=== PATIENT | male | born 1970 | race Two or more races ===

== ENCOUNTER 2017-08-19 12:34 | Emergency (ER) | payer OTHER ==
[2017-08-19 12:41] VITALS: BP 126/65; PULSE 98; TEMP 99.4; BMI 25.2
[2017-08-19] MEDS ORDERED: VANCOMYCIN 1 GM PREMIX - 1 GM/200 ML BAG IVPB ONE (13:38)
--- NOTE | 2017-08-19 13:55 | PDOC ---
History of Present Illness - General Chief Complaint: Redness To Affected Area Stated Complaint: FEVER, BITE - History of Present Illness Initial Comments: This is a 47 room male without any comorbidities who presents with redness and swelling to the left ankle 3 days. He has associated fever at home up to 101.2 he's taken Motrin and Tylenol for his pain and fever which has given him some relief. 08/19/17 13:50 Past History - Past Medical History Allergies/Adverse Reactions: Allergies Allergy/AdvReac Type Severity Reaction Status Date / Time No Known Allergies Allergy Verified 08/19/17 12:41 Home Medications: Ambulatory Orders Cephalexin [Keflex] 500 mg PO QID #40 capsule 08/19/17 Sulfamethoxazole/Trimethoprim [Bactrim Ds -] 1 tab PO BID #14 tablet 08/19/17 - Suicide/Smoking/Psychosocial Hx Smoking History: Never smoked Have you smoked in the past 12 months: No Information on smoking cessation initiated: No Hx Alcohol Use: No Drug/Substance Use Hx: No Review of Systems - Review of Systems Constitutional: Yes: See HPI, Fever, Malaise Musculoskeletal: Yes: See HPI, Joint Pain Integumentary: Yes: See HPI, Erythema All Other Systems: Reviewed and Negative *Physical Exam - Vital Signs Last Vital Signs Temp Pulse Resp BP Pulse Ox 99.4 F 98 H 16 126/65 98 08/19/17 12:39 08/19/17 12:39 08/19/17 12:39 08/19/17 12:39 08/19/17 12:39 - Physical Exam Comments: Left ankle is ear thymic and hot with induration about the medial aspect. The ear edema extends from the fifth and fourth toe proximally and medially around the ankle and stops at the distal torres. There is no pain with passive motion of the ankle joint or toes. There is no appreciable intra-articular effusion. There is induration of the skin medially. There is associated sensitivity. There are no gross sensorimotor deficits There is no streaking or inguinal adenopathy. 08/19/17 13:50 08/19/17 15:24 ED Treatment Course - LABORATORY CBC & Chemistry Diagram: 08/19/17 14:00 08/19/17 14:00 Medical Decision Making - Medical Decision Making I believe this is an increasing cellulitis. This is not a septic joint picture. And I don't believe this is a necrotizing fasciitis. However I will get an ankle x-ray. 08/19/17 13:52 08/19/17 13:53 I'll get some baseline blood work and give him IV vancomycin in the emergency room and try him on outpatient Bactrim and Keflex *DC/Admit/Observation/Transfer Diagnosis at time of Disposition: Cellulitis of ankle - Discharge Dispostion Disposition: HOME Condition at time of disposition: Improved Decision to Admit order: No - Prescriptions Prescriptions: Cephalexin [Keflex] 500 mg PO QID #40 capsule Sulfamethoxazole/Trimethoprim [Bactrim Ds -] 1 tab PO BID #14 tablet - Referrals Referrals: Damion [facility] [Non Staff, Medical] - - Patient Instructions Printed Discharge Instructions: DI for Cellulitis -- Adult, Cellulitis Additional Instructions: Return to the emergency room should her symptoms worsen or go unresolved. Return to the emergency room should the redness extends between the outlined borders I have marked today take all the antibiotics as prescribed. Please follow-up with her primary care physician if he did not have one I've recommended 1 few to follow-up. - Post Discharge Activity
[2017-08-19] MEDS ORDERED: VANCOMYCIN 1 GRAM (PRE-DOCKED) 1,000 MG/250 ML BAG IVPB ONE (14:01)
[2017-08-19 14:11] LABS: BASO % 0.1 % (0-2.0); EOS % 0.7 % (0-4.5); HEMATOCRIT 42.7 % (35.4-49); HEMOGLOBIN 14.4 GM/dL (11.7-16.9); LYMPH % 10.4 % (8-40); MCH 29.2 pg (25.7-33.7); MCHC 33.6 g/dl (32.0-35.9); MEAN CELL VOLUME 86.7 fl (80-96); MEAN PLT VOLUME 8.6 fl (7.5-11.1); MONO % 7.1 % (3.8-10.2); NEUT % 81.7 % (42.8-82.8); PLATELET COUNT 220 K/MM3 (134-434); RBC 4.92 M/mm3 (4.00-5.60); RDW 12.8 % (11.9-15.9); WHITE BLOOD COUNT 10.9 K/mm3 (4.0-10.0)
[2017-08-19 14:50] LABS: ALBUMIN 3.9 g/dl (3.4-5.0); ANION GAP 8 (8-16); BILIRUBIN,TOTAL 0.4 mg/dL (0.2-1.0); BLOOD UREA NITROGEN 14 mg/dL (7-18); CALCIUM 8.8 mg/dL (8.5-10.1); CHLORIDE 101 mmol/L (98-107); CO2 26 mmol/L (21-32); CREATININE 0.9 mg/dL (0.7-1.3); GLUCOSE,RANDOM 109 mg/dL (74-106); POTASSIUM 4.3 mmol/L (3.5-5.1); SGOT/AST 16 U/L (15-37); SGPT/ALT 25 U/L (12-78); SODIUM 135 mmol/L (136-145); TOT PROT 7.4 g/dl (6.4-8.2)
[2017-08-19 14:51] LABS: ALK PHOS 79 U/L (45-117)
== END 2017-08-19 15:43 | disposition home or self-care (01) ==
LOC: JERFT 12:34
DX: L03.116 Cellulitis of left lower limb (principal)
CPT/HCPCS: 36415; 73610-TC-LT-FY; 73630-TC-LT; 80053; 85025; 96365; 96366; 99281-25

== ENCOUNTER 2018-03-18 07:13 | Emergency (ER) | payer SELFPAY ==
[2018-03-18 07:32] VITALS: BP 132/89; PULSE 106; TEMP 98.4; BMI 25.0
--- NOTE | 2018-03-18 07:35 | PDOC ---
History of Present Illness - General Chief Complaint: Pain Stated Complaint: PAIN Time Seen by Provider: 03/18/18 07:35 - History of Present Illness Initial Comments: 47 year old male with PMH of nephrolithiasis (most recently 10/15) presenting with right lower thoracic pain for the past three weeks in the setting of prolonged cough and increased physical activity. States that he has had a lot of construction in his house and he has been assisting with lifting heavy objects. Doesn't recall any specific event where he hurt his back chest but he woke up one morning approximately three weeks prior and had this posterior thoracic pain on the right side that has been worse with moving, deep inhalation , and cough. His pain improves with Tylenol. 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 Denies any recent travel. Denies any fevers,chills, nausea, vomiting, diarrhea, hempoptysis. 03/18/18 07:36 Past History - Past Medical History Allergies/Adverse Reactions: Allergies Allergy/AdvReac Type Severity Reaction Status Date / Time No Known Allergies Allergy Verified 03/18/18 07:32 Home Medications: Ambulatory Orders Azithromycin [Zithromax 250mg Tablets -] 250 mg PO UTDICT #6 tab 03/18/18 Ibuprofen [Motrin -] 600 mg PO QID PRN #20 tablet 03/18/18 COPD: No - Suicide/Smoking/Psychosocial Hx Smoking History: Never smoked Have you smoked in the past 12 months: No Information on smoking cessation initiated: No Hx Alcohol Use: No Drug/Substance Use Hx: No Review of Systems - Review of Systems Constitutional: No: Chills, Diaphoresis, Fever, Loss of Appetite HEENTM: No: Eye Pain, Blurred Vision, Tearing Respiratory: Yes: Cough. No: Shortness of Breath, SOB with Exertion, SOB at Rest, Wheezing, Productive cough Cardiac (ROS): Yes: Chest Pain. No: Irregular Heart Rate, Lightheadedness, Syncope, Chest Tightness, Other ABD/GI: No: Diarrhea, Nausea, Vomiting : No: Burning, Dysuria, Hematuria Musculoskeletal: No: Gout, Joint Pain, Joint Swelling Integumentary: No: Lesions, Lumps, Pallor Neurological: No: Headache, Numbness, Tingling Psychiatric: No: Anxiety, Depression, Frequent Crying Endocrine: No: Flushing, Increased Urine Hematologic/Lymphatic: No: Anemia, Blood Clots, Easy Bleeding, Easy Bruising, Bleeding Diathesis *Physical Exam - Vital Signs Last Vital Signs Temp Pulse Resp BP Pulse Ox 98.4 F 106 H 20 132/89 95 03/18/18 07:31 03/18/18 07:31 03/18/18 07:31 03/18/18 07:31 03/18/18 07:31 - Physical Exam General Appearance: Yes: Nourished, Appropriately Dressed. No: Apparent Distress HEENT: positive: EOMI, OSIEL, Normal ENT Inspection, Normal Voice Neck: positive: Trachea midline, Normal Thyroid, Supple. negative: Tender, Rigid Respiratory/Chest: positive: Lungs Clear, Normal Breath Sounds. negative: Chest Tender, Respiratory Distress, Accessory Muscle Use Cardiovascular: positive: Regular Rhythm, Regular Rate Gastrointestinal/Abdominal: positive: Normal Bowel Sounds, Flat, Soft. negative : Tender Lymphatic: negative: Adenopathy, Tenderness Musculoskeletal: positive: Normal Inspection. negative: CVA Tenderness, Decreased Range of Motion, Muscle Spasm, Vertebral Tenderness Extremity: positive: Normal Capillary Refill, Normal Inspection, Normal Range of Motion. negative: Tender Integumentary: positive: Normal Color, Dry, Warm Neurologic: positive: Fully Oriented, Alert, Normal Mood/Affect, Normal Response , Motor Strength 5/5 Moderate Sedation - Procedure Monitoring Vital Signs: Procedure Monitoring Vital Signs Temperature 98.4 F 03/18/18 07:31 Pulse Rate 106 H 03/18/18 07:31 Respiratory Rate 20 03/18/18 07:31 Blood Pressure 132/89 03/18/18 07:31 O2 Sat by Pulse Oximetry (%) 95 03/18/18 07:31 Medical Decision Making - Medical Decision Making 47 year old healthy male presenting with cough and posterior right thoracic pain in the setting of heavy object lifting over the past three weeks. No reproducible tenderness and patient is non-toxic with stable vitals. He likely has a viral infection of his lungs along with a possible muscular strain. The differential diagnosis includes muscular strain vs. costochondritis. The CXR is grossly clear but there may be some minor inflammatory changes concerning for atypical pneumonia. Not likely PE given lack of PEC risk factors. Not likely ACS either given lack of risk factors. We will cover him with an azithromycin dose pack and prescribe naproxen. Will DC with return precautions and follow up instructions with his PCP (doesn't recall the name but sees him once a year). 03/18/18 08:06 *DC/Admit/Observation/Transfer Diagnosis at time of Disposition: Bronchitis, Acute costochondritis - Discharge Dispostion Disposition: HOME Condition at time of disposition: Improved Decision to Admit order: No - Prescriptions Prescriptions: Azithromycin [Zithromax 250mg Tablets -] 250 mg PO UTDICT #6 tab Ibuprofen [Motrin -] 600 mg PO QID PRN #20 tablet PRN Reason: Pain - Referrals Referrals: [facility] [place] [Provider Group] - Patient Instructions Printed Discharge Instructions: DI for Acute Bronchitis, DI for Costochondritis Additional Instructions: Please use the medicines as prescribed. Please follow up with your PCP within a week. Please return to the ED if you have new or worsening symptoms including worsening cough, fevers, chills, or other concerning symptoms. - Post Discharge Activity
--- NOTE | 2018-03-18 08:12 | PDOC ---
Attending Attestation - Resident Resident Name: Munir Chavez - ED Attending Attestation I have performed the following: I have examined & evaluated the patient, The case was reviewed & discussed with the resident, I agree w/resident's findings & plan, Exceptions are as noted - HPI HPI: 03/18/18 08:09 47 year old male c/ hx of kidney stones presents with reproducible R ribs pain when coughing. 3 weeks of mildly productive clearish cough. No midsternal chest pain, SOB. Had noticed that right pains recently. Came into ER for an evaluation. - Physicial Exam PE: 03/18/18 08:12 GENERAL: Awake, alert, and fully oriented, in no acute distress HEAD: No signs of trauma EYES: EOMI, sclera anicteric, conjunctiva clear ENT: Auricles normal inspection, hearing grossly normal, nares patent, Moist mucosa NECK: Normal ROM, supple, LUNGS: Breath sounds equal, clear to auscultation bilaterally. No wheezes, and no crackles HEART: Regular rate and rhythm, normal S1 and S2, no murmurs, rubs or gallops. Reproducible right lateral ribs pain. EXTREMITIES: Normal range of motion, no edema. No clubbing or cyanosis. No cords, erythema, or tenderness NEUROLOGICAL: Cranial nerves II through XII grossly intact. Normal speech, normal gait SKIN: Warm, Dry, normal turgor, no rashes or lesions noted. - Medical Decision Making 03/18/18 08:12 Vital Signs Temp Pulse Resp BP Pulse Ox 98.4 F 106 H 20 132/89 95 03/18/18 07:31 03/18/18 07:31 03/18/18 07:31 03/18/18 07:31 03/18/18 07:31 Nontoxic appearing male with reproducible R rib pain and coughing. I suspect that this is bronchitis with costochondritis. Chest xray demonstrates no infilrates (reviewed by me, pending official radiology read) Initiate azithromycin for bronchitis. NSAIDS for costochrondritis. Follow up with PMD.
== END 2018-03-18 08:29 | disposition home or self-care (01) ==
LOC: JER 07:13
DX: J40 Bronchitis, not specified as acute or chronic (principal); M94.0 Chondrocostal junction syndrome [Tietze]
CPT/HCPCS: 71046-TC-FY; 99281-25

== ENCOUNTER 2019-09-25 07:16 | Emergency (ER) | payer OTHER ==
[2019-09-25 07:27] VITALS: BP 115/75; PULSE 71; TEMP 98.7; BMI 25.4
--- NOTE | 2019-09-25 08:21 | PDOC ---
History of Present Illness - General Chief Complaint: Rash Stated Complaint: ALLERGIC REACTION Time Seen by Provider: 09/25/19 08:09 History Source: Patient Exam Limitations: No Limitations - History of Present Illness Initial Comments: 09/25/19 08:18 Patient is a 49-year-old male with no past medical history who presents to the ED with complaint of a rash that he has had on his right forehead left arm and right leg for the last 3 days. He states he was in the park playing and then noticed the rash. He states the rash to his leg and arm are itchy but his face has not. He denies any pain. He denies any drainage. He denies any fevers or chills. He denies any visual changes. He denies any allergies to medications. Past History - Medical History Allergies/Adverse Reactions: Allergies Allergy/AdvReac Type Severity Reaction Status Date / Time No Known Allergies Allergy Verified 03/18/18 07:32 Home Medications: Ambulatory Orders Fexofenadine HCl [Bonnie Allergy] 180 mg PO DAILY 7 Days #7 tablet 09/25/19 predniSONE [Deltasone -] 60 mg PO DAILY #15 tablet 09/25/19 COPD: No - Immunization History Immunization Up to Date: No - Psycho-Social/Smoking History Smoking History: Never smoked Have you smoked in the past 12 months: No Information on smoking cessation initiated: No - Substance Abuse Hx (Audit-C & DAST Scrn) How often the patient has a drink containing alcohol: Never Score: In Men: 4 or > Positive; In Women: 3 or > Positive: 0 Screen Result (Pos requires Nsg. Audit-10AR): Negative In the last yr the pt used illegal drug/Rx for NonMed reason: No Score: Yes response is considered Positive: 0 Screen Result (Positive result requires Nsg. DAST-10): Negative Review of Systems - Review of Systems Comments:: 09/25/19 08:19 - Review of Systems Able to Perform ROS?: Yes Constitutional: No: Fever, Chills, Loss of Appetite, Night Sweats, Weakness HEENTM: No: Eye Pain, Vision changes, Ear Pain, Throat Pain, Throat Swelling, Mouth Pain, Difficulty Swallowing Respiratory: No: Cough, Shortness of Breath, Wheezing, Sputum Production Cardiac (ROS): No: Chest Pain, Chest Tightness, Palpitations, Irregular Heart Beat, Edema ABD/GI: No: Nausea, Vomiting, Abdominal Pain, Diarrhea : No Dysuria, No Hematuria, No Frequency, No Urgency Musculoskeletal: No: Muscle Pain, Back Pain, Joint Pain, Muscle Weakness, Neck Pain Integumentary: No: Lesions, positive: Rash Neurological: No: Headache, Numbness, Tingling, Weakness, Speech Difficulties *Physical Exam - Vital Signs Last Vital Signs Temp Pulse Resp BP Pulse Ox 98.7 F 71 16 115/75 96 09/25/19 07:21 09/25/19 07:21 09/25/19 07:21 09/25/19 07:21 09/25/19 07:21 - Physical Exam 09/25/19 08:19 - Physical Exam General Appearance: Nourished, Appropriately Dressed, No Distress HEENT: EOMI, Normal Voice, No Pharyngeal Erythema, No Muffled/Hoarse voice, No Tonsillar Exudate, No Tonsillar Erythema, No Nasal Congestion, No Rhinorrhea, Hearing Grossly Normal, TMs Normal, No TM Bulging, No TM Dullness, No TM Erythema Neck: Supple, No Lymphadenopathy (R), No Lymphadenopathy (L), No Rigidity, No Decreased range of motion Respiratory/Chest: Lungs Clear, Normal Breath Sounds. No Respiratory Distress, No Accessory Muscle Use Cardiovascular: Regular Rhythm, Regular Rate, S1, S2 Gastrointestinal/Abdominal: Normal Bowel Sounds, Soft. Non-tender, No Guarding, No Rebound, No Rigidity Musculoskeletal: Normal Inspection. No Decreased Range of Motion Extremity: Normal Capillary Refill, Normal Inspection Integumentary: Normal Color, Dry. Right forehead rash with vesicular-like pattern in a cluster formation, there is a similar rash on the left forearm linear pattern consistent with contact from poison mariia. Another linear rash on the right lower leg appreciated with similar appearance. No drainage. No pustules. No surrounding cellulitis. No tenderness to palpation. No ocular involvement. 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 Plan: -A prescription for prednisone and Bonnie will be sent to the patient's pharmacy -He has been made aware that he can take Benadryl but should take it only at night as it can cause drowsiness -He should follow-up with his primary doctor within 1 to 2 days for repeat evaluation. -He understands and agrees with this treatment plan and he is stable for discharge. Discharge - Discharge Information Problems reviewed: Yes Clinical Impression/Diagnosis: Poison mariia dermatitis Condition: Stable Disposition: HOME - Additional Discharge Information Prescriptions: Fexofenadine HCl [Bonnie Allergy] 180 mg PO DAILY 7 Days #7 tablet predniSONE [Deltasone -] 60 mg PO DAILY #15 tablet - Follow up/Referral Referrals: ON STAFF,NOT [Primary Care Provider] - - Patient Discharge Instructions Patient Printed Discharge Instructions: DI for Poison Mariia Allergy Additional Instructions: Avoid scratching the rash as this can cause spreading the rash to yourself. You are not contagious to others at this point. Take the steroids as prescribed as this will help with the rash and the itching. Take the allergy pill as prescribed. You can also take Benadryl but you may want to reserve that for nighttime as it can cause drowsiness. Follow-up with your primary doctor within 1 to 2 days for repeat evaluation. Return to the emergency department for any worsening symptoms such as difficulty breathing, mouth or lip swelling, eye in volvement or any other concerning symptoms. - Post Discharge Activity Work/Back to School Note: Back to Work
== END 2019-09-25 09:59 | disposition home or self-care (01) ==
LOC: JERFT 07:16 → JER 07:16 → JERFT 09:59
DX: L23.7 Allergic contact dermatitis due to plants, except food (principal)
CPT/HCPCS: 99282-25

== ENCOUNTER 2020-07-03 09:43 | Emergency (ER) | payer OTHER ==
[2020-07-03 09:57] VITALS: BP 128/88; PULSE 99; TEMP 98.6; BMI 25.1
[2020-07-03] MEDS ORDERED: DEXAMETHASONE SOD PHOSPHATE 10 MG/1 ML VIAL IM ONE (10:07)
[2020-07-03] MEDS ORDERED: DEXAMETHASONE SOD PHOSPHATE 10 MG/1 ML VIAL ONE (10:13)
== END 2020-07-03 10:18 | disposition home or self-care (01) ==
LOC: JERFT 09:43
PROC: 3E023NZ Introduction of Analgesics, Hypnotics, Sedatives into Muscle, Percutaneous Approach (ICD-10-PCS; principal; 2020-07-03)
DX: L23.9 Allergic contact dermatitis, unspecified cause (principal)
CPT/HCPCS: 99284-25; J1100

== ENCOUNTER 2021-06-03 10:18 | Emergency (ER) | payer OTHER ==
[2021-06-03 10:34] VITALS: BP 122/81; PULSE 70; TEMP 98.2; BMI 25.7
[2021-06-03] MEDS ORDERED: DEXAMETHASONE SOD PHOSPHATE 10 MG/1 ML VIAL IM ONE (11:52)
[2021-06-03] MEDS ORDERED: diphenhydrAMINE HCL 25 MG CAPSULE (FP) PO ONE ×2 (11:53→12:25)
[2021-06-03] MEDS ORDERED: FAMOTIDINE 20 MG TABLET PO ONE (11:53)
[2021-06-03] MEDS ORDERED: DEXAMETHASONE SOD PHOSPHATE 10 MG/1 ML VIAL ONE (12:25)
[2021-06-03] MEDS ORDERED: FAMOTIDINE 20 MG TABLET ONE (12:25)
== END 2021-06-03 12:51 | disposition home or self-care (01) ==
LOC: JERFT 10:18
PROC: 3E023GC Introduction of Other Therapeutic Substance into Muscle, Percutaneous Approach (ICD-10-PCS; principal; 2021-06-03)
DX: T78.40XA Allergy, unspecified, initial encounter (principal)
CPT/HCPCS: 36415; 86780; 87491; 87591; 99284-25; J1100

== ENCOUNTER 2022-05-14 05:33 | Emergency (ER) | payer OTHER ==
[2022-05-14 05:37] VITALS: BMI 25.2
[2022-05-14] MEDS ORDERED: SODIUM CHLORIDE 0.9% 500 ML INFUS.BAG IV ONE ×2 (06:08→08:48)
[2022-05-14] MEDS ORDERED: KETOROLAC TROMETHAMINE 15 MG/ML VIAL IVPUSH ONE (06:08)
[2022-05-14] MEDS ORDERED: ONDANSETRON 4 MG/2 ML VIAL IVPUSH ONE (06:08)
[2022-05-14] MEDS ORDERED: KETOROLAC TROMETHAMINE 15 MG/ML VIAL ONE (06:14)
[2022-05-14] MEDS ORDERED: ONDANSETRON 4 MG/2 ML VIAL ONE (06:14)
[2022-05-14 07:05] LABS: HEMOGLOBIN 14.2 GM/dL (11.7-16.9)
[2022-05-14 07:21] LABS: BASO % 0.2 % (0-2.0); EOS % 0.7 % (0-4.5); HEMATOCRIT 41.5 % (35.4-49); LYMPH % 7.6 % (8-40); MCH 28.8 pg (25.7-33.7); MCHC 34.2 g/dl (32.0-35.9); MEAN PLT VOLUME 8.7 fl (7.5-11.1); MONO % 4.8 % (3.8-10.2); NEUT % 86.7 % (42.8-82.8); PLATELET COUNT 259 10^3/uL (134-434); RBC 4.93 M/mm3 (4.00-5.60); RDW 13.5 % (11.9-15.9); WHITE BLOOD COUNT 11.1 K/mm3 (4.0-10.0)
[2022-05-14 07:42] LABS: CALCIUM 8.6 mg/dL (8.5-10.1)
[2022-05-14 07:43] LABS: ALBUMIN 3.8 g/dl (3.4-5.0); BLOOD UREA NITROGEN 20.1 mg/dL (7-18)
[2022-05-14 07:46] LABS: CREATININE 0.9 mg/dL (0.55-1.3)
[2022-05-14 07:48] LABS: BILIRUBIN,TOTAL 0.2 mg/dL (0.2-1); TOT PROT 6.8 g/dl (6.4-8.2)
[2022-05-14 08:42] LABS: EPI CELLS 2 /uL (0-25.1); HYALINE CASTS 0 /uL (0-3.1); PH,URINE 5.5 (5.0-8.0); URINE APPEARANCE CLEAR; URINE BACTERIA 0 /uL (0-1359); URINE BILIRUBIN NEGATIVE (NEGATIVE); URINE COLOR YELLOW; URINE GLUCOSE (UA) NEGATIVE (NEGATIVE); URINE KETONE NEGATIVE (NEGATIVE); URINE LEUK ESTERASE NEGATIVE (NEGATIVE); URINE NITRITE NEGATIVE (NEGATIVE); URINE PROTEIN NEGATIVE (NEGATIVE); URINE RBC 607 /uL (0-23.9); URINE UROBILINOGEN 0.2 mg/dL (0.2-1.0); URINE WBC 10 /uL (0-25.8)
[2022-05-14 14:14] VITALS: BP 133/78; PULSE 85; RESP 18; TEMP 98
== END 2022-05-14 13:00 | disposition left against medical advice (07) ==
LOC: JER 05:33
DX: N28.1 Cyst of kidney, acquired (principal); R10.84 Generalized abdominal pain; R31.9 Hematuria, unspecified
CPT/HCPCS: 36415; 74176-TC; 76775-TC; 80053; 81003; 85025; 87086; 99285-25